=== PATIENT | male | born 1960 | race Hispanic/Latino ===

== ENCOUNTER 2018-01-24 17:42 | Inpatient (IN) | payer MEDICARE ==
[~2018-01-24] VITALS: Ht 177.8 cm; Wt 98.6 kg
[~2018-01-24 17:42] MED LIST: ADLT ASA LOW81 MG PO; ATORVASTATIN CA80 MG PO; CLONIDINE HCL0.1 MG PO; FENOFIBRATE145 MG PO; GABAPENTIN300 M2 PO; GLIMEPIRIDE2 MG PO; HYDRALAZINE50 MG PO; LISINOPRIL20 MG PO; NIFEDIPINE ER90 MG PO; NORMODYNE/100 MG/TA1 PO
[2018-01-24 18:10] LABS: HEMATOCRIT 30.7 % (39.0-50.0); HEMOGLOBIN 9.3 g/dl (14.0-18.0); IMMATURE GRANULOCYTES 0.3 % (0.0-5.0); MEAN CELL VOLUME 87.5 fL CALC (80.0-100.0); MEAN CORPUSCULAR HGB 26.5 pG CALC (26.0-32.0); MEAN CORPUSCULAR HGB CONC 30.3 g/L CALC (32.0-36.0); NEUT# 9.78 thou/uL (1.82-7.42); RED BLOOD COUNT 3.51 mill/uL (4.70-6.10); RED CELL DISTRI WIDTH 16.3 % (11.5-15.5)
[2018-01-24 18:28] LABS: ALBUMIN 3.5 g/dL (3.2-5.0); BILIRUBIN, TOTAL 0.4 mg/dL (0.0-1.4); TOTAL PROTEIN 7.1 g/dL (6.3-8.2)
[2018-01-24 18:33] LABS: CREATININE 2.6 mg/dL (0.7-1.3)
[2018-01-24 18:36] LABS: INFLUENZA A NONE DETECTED (NONE DETECT); INFLUENZA B NONE DETECTED (NONE DETECT)
[2018-01-24 19:58] LABS: URINE BILIRUBIN - DIPSTICK NEGATIVE (NEGATIVE); URINE BLOOD DIPSTICK TRACE-INTACT (NEGATIVE); URINE COLOR YELLOW; URINE GLUCOSE - DIPSTICK 100 mg/dL (NEGATIVE); URINE KETONE NEGATIVE (NEGATIVE); URINE LEUK ESTERASE NEGATIVE (NEGATIVE); URINE NITRITE - DIPSTICK NEGATIVE (Negative); URINE PROTEIN - DIPSTICK >=300 mg/dL (NEG-TRACE); URINE SPECIFIC GRAVITY 1.025; URINE UROBILINOGEN - DIPSTICK 0.2 E.U./dL (0.2)
[2018-01-24 19:59] LABS: URINE CLARITY CLEAR
[2018-01-24 20:05] LABS: URINE RBC 0-2 RBC/hpf (0-5); URINE WBC 0-2 WBC/hpf (0-5)
[2018-01-24 20:15] VITALS: BP 153/80
[2018-01-24 20:50] VITALS: BP 153/80
[2018-01-24 21:54] LABS: CREATININE 2.5 mg/dL (0.7-1.3)
[2018-01-24 21:56] LABS: POTASSIUM 5.5 mmol/l (3.5-5.1)
[2018-01-25] VITALS (7 sets, daily range): BP systolic 142–182; BP diastolic 72–88
[2018-01-25 06:05] LABS: HEMATOCRIT 27.6 % (39.0-50.0); HEMOGLOBIN 8.2 g/dl (14.0-18.0); IMMATURE GRANULOCYTES 0.3 % (0.0-5.0); MEAN CELL VOLUME 87.3 fL CALC (80.0-100.0); MEAN CORPUSCULAR HGB 25.9 pG CALC (26.0-32.0); MEAN CORPUSCULAR HGB CONC 29.7 g/L CALC (32.0-36.0); NEUT# 7.48 thou/uL (1.82-7.42); RED BLOOD COUNT 3.16 mill/uL (4.70-6.10); RED CELL DISTRI WIDTH 16.1 % (11.5-15.5)
[2018-01-25 06:18] LABS: CREATININE 2.3 mg/dL (0.7-1.3); POTASSIUM 4.8 mmol/l (3.5-5.1)
[2018-01-26 00:20] VITALS: BP 147/77
[2018-01-26 05:14] VITALS: BP 157/83
[2018-01-26 08:54] VITALS: BP 156/65
[2018-01-26 12:35] VITALS: BP 135/70
[2018-01-26 15:08] VITALS: BP 152/75
[2018-01-26 19:49] VITALS: BP 136/69
[2018-01-27] VITALS (7 sets, daily range): BP systolic 137–163; BP diastolic 74–85
[2018-01-27 05:36] LABS: HEMOGLOBIN 8.2 g/dl (14.0-18.0); IMMATURE GRANULOCYTES 2.5 % (0.0-5.0); MEAN CELL VOLUME 87.1 fL CALC (80.0-100.0); MEAN CORPUSCULAR HGB 26.5 pG CALC (26.0-32.0); MEAN CORPUSCULAR HGB CONC 30.4 g/L CALC (32.0-36.0); NEUT# 6.66 thou/uL (1.82-7.42); RED BLOOD COUNT 3.1 mill/uL (4.70-6.10); RED CELL DISTRI WIDTH 15.9 % (11.5-15.5)
[2018-01-27 05:58] LABS: BILIRUBIN, TOTAL 0.1 mg/dL (0.0-1.4); CREATININE 2.4 mg/dL (0.7-1.3); MAGNESIUM 2.3 mg/dL (1.6-2.3)
[2018-01-27 05:59] LABS: ALBUMIN 2.5 g/dL (3.2-5.0); POTASSIUM 5.3 mmol/l (3.5-5.1); TOTAL PROTEIN 5.3 g/dL (6.3-8.2)
[2018-01-28] VITALS (7 sets, daily range): BP systolic 141–169; BP diastolic 70–86
[2018-01-28 05:15] LABS: HEMATOCRIT 31.2 % (39.0-50.0); HEMOGLOBIN 9.4 g/dl (14.0-18.0); IMMATURE GRANULOCYTES 3.3 % (0.0-5.0); MEAN CELL VOLUME 86.4 fL CALC (80.0-100.0); MEAN CORPUSCULAR HGB CONC 30.1 g/L CALC (32.0-36.0); NEUT# 9.99 thou/uL (1.82-7.42); RED BLOOD COUNT 3.61 mill/uL (4.70-6.10); RED CELL DISTRI WIDTH 15.9 % (11.5-15.5)
[2018-01-28 05:40] LABS: ALBUMIN 2.9 g/dL (3.2-5.0); BUN 42 mg/dL (9-20); CARBON DIOXIDE 21 mmol/l (22-30); CHLORIDE 111 mmol/l (95-108); CREATININE 2.3 mg/dL (0.7-1.3); GFR 30 ML/MIN (>=60 (CALC)); GFR FOR AFR.AMER. 36 ML/MIN (>=60 (CALC)); MAGNESIUM 2.4 mg/dL (1.6-2.3); SODIUM 141 mmol/l (137-146)
[2018-01-28 06:18] LABS: POTASSIUM 5.9 mmol/l (3.5-5.1)
[2018-01-29 04:41] VITALS: BP 162/82
[2018-01-29 05:30] LABS: HEMATOCRIT 28.1 % (39.0-50.0); HEMOGLOBIN 8.5 g/dl (14.0-18.0); IMMATURE GRANULOCYTES 2.7 % (0.0-5.0); MEAN CELL VOLUME 85.9 fL CALC (80.0-100.0); MEAN CORPUSCULAR HGB CONC 30.2 g/L CALC (32.0-36.0); NEUT# 8.13 thou/uL (1.82-7.42); RED BLOOD COUNT 3.27 mill/uL (4.70-6.10); RED CELL DISTRI WIDTH 15.6 % (11.5-15.5)
[2018-01-29 06:06] LABS: ALBUMIN 2.5 g/dL (3.2-5.0); BILIRUBIN, TOTAL 0.2 mg/dL (0.0-1.4); CREATININE 2.2 mg/dL (0.7-1.3); MAGNESIUM 2.1 mg/dL (1.6-2.3); TOTAL PROTEIN 5.2 g/dL (6.3-8.2)
[2018-01-29 06:09] LABS: POTASSIUM 5.3 mmol/l (3.5-5.1)
[2018-01-29 08:13] VITALS: BP 172/85
[2018-01-29 11:29] VITALS: BP 168/85
[2018-01-29] MEDS ORDERED: DOXYCYCL HYC100 MG PO (14:05)
[2018-01-29 15:35] VITALS: BP 179/88
== END 2018-01-29 14:58 | disposition home or self-care (01) | DRG 194 ==
LOC: ED 17:42 → ED-I 19:00 → ED 19:23 → MS2 19:24
PROVIDERS: Family Medicine; Internal Medicine Nephrology; Nurse Practitioner Family; ADMIT Internal Medicine; ATTEND Internal Medicine Nephrology
DX: J18.9 Pneumonia, unspecified organism (principal); N17.9 Acute kidney failure, unspecified; N18.4 Chronic kidney disease, stage 4 (severe); I12.9 Hypertensive chronic kidney disease with stage 1 through stage 4 chronic kidney disease, or unspecified chronic kidney disease; E11.22 Type 2 diabetes mellitus with diabetic chronic kidney disease; E86.0 Dehydration; E87.5 Hyperkalemia; D63.1 Anemia in chronic kidney disease; E11.42 Type 2 diabetes mellitus with diabetic polyneuropathy; E11.319 Type 2 diabetes mellitus with unspecified diabetic retinopathy without macular edema; H54.8 Legal blindness, as defined in USA; I25.10 Atherosclerotic heart disease of native coronary artery without angina pectoris; M89.8X9 Other specified disorders of bone, unspecified site; M19.90 Unspecified osteoarthritis, unspecified site; Z79.84 Long term (current) use of oral hypoglycemic drugs; Z93.3 Colostomy status
CPT/HCPCS: G0378; J0885; J1756

== ENCOUNTER 2018-12-03 17:03 | Emergency (ER) | payer MEDICARE ==
[~2018-12-03] VITALS: Ht 177.8 cm; Wt 106.4 kg
[~2018-12-03 17:03] MED LIST changes: +DOXYCYCL HYC100 MG PO
[2018-12-03] MEDS ORDERED: TRAMADOL HYDROC50 M1 PO (18:10)
[2018-12-03] MEDS ORDERED: PENICILLN VK500 MG PO (18:10)
[2018-12-03 18:15] VITALS: BP 189/94
[2018-12-03] MEDS ORDERED: GLIMEPIRIDE2 MG PO (18:22)
[2018-12-03] MEDS ORDERED: ZOFRAN4 MG/TAB PO (18:22)
[2018-12-03] MEDS ORDERED: LISINOPRIL20 M1 PO (18:23)
[2018-12-03] MEDS ORDERED: NORMODYNE/100 MG/TA1 PO (18:23)
[2018-12-03] MEDS ORDERED: GABAPENTIN300 M2 PO (18:24)
[2018-12-03] MEDS ORDERED: CLONIDINE HCL0.1 MG PO (18:24)
== END 2018-12-03 18:15 | disposition home or self-care (01) ==
LOC: ED 17:03
DX: K04.7 Periapical abscess without sinus (principal); K02.9 Dental caries, unspecified; M84.68XA Pathological fracture in other disease, other site, initial encounter for fracture; I10 Essential (primary) hypertension; E11.9 Type 2 diabetes mellitus without complications; H54.7 Unspecified visual loss

== ENCOUNTER 2019-02-15 16:42 | Emergency (ER) | payer MEDICARE ==
[~2019-02-15] VITALS: Ht 177.8 cm; Wt 113.6 kg
[~2019-02-15 16:42] MED LIST changes: +LISINOPRIL20 M1 PO; +PENICILLN VK500 MG PO; +TRAMADOL HYDROC50 M1 PO; +ZOFRAN4 MG/TAB PO
[2019-02-15 17:44] LABS: HEMATOCRIT 26.1 % (39.0-50.0); HEMOGLOBIN 7.9 g/dl (14.0-18.0); IMMATURE GRANULOCYTES 0.9 % (0.0-5.0); MEAN CORPUSCULAR HGB 29.3 pG CALC (26.0-32.0); MEAN CORPUSCULAR HGB CONC 30.3 g/L CALC (32.0-36.0); NEUT# 11.13 thou/uL (1.82-7.42); RED BLOOD COUNT 2.7 mill/uL (4.70-6.10); RED CELL DISTRI WIDTH 13.7 % (11.5-15.5)
[2019-02-15 17:45] LABS: MEAN CELL VOLUME 96.7 fL CALC (80.0-100.0)
[2019-02-15 17:51] LABS: ALBUMIN 2.4 g/dL (3.2-5.0); POTASSIUM 4.6 mmol/l (3.5-5.1); TOTAL PROTEIN 5.2 g/dL (6.3-8.2)
[2019-02-15 18:20] LABS: BILIRUBIN, TOTAL 0.3 mg/dL (0.0-1.4); CREATININE 4.3 mg/dL (0.7-1.3)
[2019-02-15 19:10] VITALS: BP 202/99
== END 2019-02-15 19:10 | disposition short-term general hospital (02) ==
LOC: ED 16:42
PROVIDERS: Family Medicine
DX: I21.4 Non-ST elevation (NSTEMI) myocardial infarction (principal); J18.9 Pneumonia, unspecified organism; E11.22 Type 2 diabetes mellitus with diabetic chronic kidney disease; I12.9 Hypertensive chronic kidney disease with stage 1 through stage 4 chronic kidney disease, or unspecified chronic kidney disease; N18.4 Chronic kidney disease, stage 4 (severe); Z79.84 Long term (current) use of oral hypoglycemic drugs; Z93.3 Colostomy status
CPT/HCPCS: G9019

== ENCOUNTER 2019-05-13 | Emergency (ER) | payer MEDICARE ==
[2019-05-13] MEDS ORDERED: FERRAPLUS 90 PO (21:07)
[2019-05-13] MEDS ORDERED: FOLIC ACID1 MG PO (21:08)
[2019-05-13] MEDS ORDERED: AMOXICILLIN500 M2 PO (21:29)
[2019-05-13] MEDS ORDERED: LORTAB 5/3255 MG PO (21:30)
[2019-05-13] MEDS ORDERED: ZOFRAN4 MG PO (21:30)
== END 2019-05-13 21:40 | disposition home or self-care (01) ==
DX: K02.9 Dental caries, unspecified (principal); E11.9 Type 2 diabetes mellitus without complications; I10 Essential (primary) hypertension

== ENCOUNTER 2019-06-11 | Emergency (ER) | payer MEDICARE ==
[~2019-06-11] MED LIST changes: +AMOXICILLIN500 M2 PO; +FERRAPLUS 90 PO; +FOLIC ACID1 MG PO; +LORTAB 5/3255 MG PO; +ZOFRAN4 MG PO
[2019-06-11 18:13] LABS: HEMATOCRIT 27.8 % (39.0-50.0); HEMOGLOBIN 8.7 g/dl (14.0-18.0); IMMATURE GRANULOCYTES 0.7 % (0.0-5.0); MEAN CELL VOLUME 93.6 fL CALC (80.0-100.0); MEAN CORPUSCULAR HGB 29.3 pG CALC (26.0-32.0); MEAN CORPUSCULAR HGB CONC 31.3 g/dL CAL (32.0-36.0); NEUT# 6.15 thou/uL (1.82-7.42); RED BLOOD COUNT 2.97 mill/uL (4.70-6.10); RED CELL DISTRI WIDTH 16.5 % (11.5-15.5)
[2019-06-11 18:27] LABS: ALBUMIN 3.5 g/dL (3.2-5.0); BILIRUBIN, TOTAL 0.5 mg/dL (0.0-1.4); POTASSIUM 5.5 mmol/l (3.5-5.1); TOTAL PROTEIN 6.7 g/dL (6.3-8.2)
--- NOTE | 2019-06-11 19:18 | NUR ---
PT RECD VIA POV C/O INCREASING SOB AND INCREASED WOB INTUBATED ON 1ST ATTEMT VIA DIRECT VISUALIZTION W/ 8.0 ET TUBE SECURED AT [facility]CC [employer] CONFIMED PLACEMENT VIA AUSCULATION CO2 DETECTOR AND CHEST NORMAN PLACED ON VENT SETTINGS ON FLOW SHEET ALARMS ON AND AUDIBLE REPORT GIVEN TO CREDIT CONTROL CLERK THERAPIST ABG'S PENDING
[2019-06-11] MEDS ORDERED: LABETALOL200 MG PO (19:31)
[2019-06-11 19:32] LABS: URINE BILIRUBIN - DIPSTICK NEGATIVE (NEGATIVE); URINE BLOOD DIPSTICK TRACE-INTACT (NEGATIVE); URINE COLOR YELLOW; URINE GLUCOSE - DIPSTICK 100 mg/dL (NEGATIVE); URINE KETONE NEGATIVE (NEGATIVE); URINE LEUK ESTERASE NEGATIVE (NEGATIVE); URINE PROTEIN - DIPSTICK >=300 mg/dL (NEG-TRACE); URINE SPECIFIC GRAVITY 1.025; URINE UROBILINOGEN - DIPSTICK 0.2 E.U./dL (0.2)
[2019-06-11] MEDS ORDERED: ATORVASTATIN CA80 MG PO (19:33)
[2019-06-11 19:36] LABS: URINE NITRITE - DIPSTICK POSITIVE (Negative)
[2019-06-11] MEDS ORDERED: SODIUM PO (19:36)
[2019-06-11] MEDS ORDERED: HYDRALAZINE50 MG PO (19:37)
[2019-06-11 19:39] LABS: URINE AMORPH SEDIMENT MODERATE hpf (NONE-FER); URINE BACTERIA RARE hpf; URINE RBC 0-2 RBC/hpf (0-5); URINE WBC 0-2 WBC/hpf (0-5)
[2019-06-11] MEDS ORDERED: FERROUS SULFAT324 MG PO (19:39)
[2019-06-11] MEDS ORDERED: TRAZODONE50 MG PO (19:40)
--- NOTE | 2019-06-18 12:32 | NUR ---
Covid results (Negative) faxed to [facility] [phone].
== END 2019-06-11 21:45 | disposition still patient (30) ==
PROVIDERS: Family Medicine
PROC: 0BH17EZ Insertion of Endotracheal Airway into Trachea, Via Natural or Artificial Opening (ICD-10-PCS; principal; 2019-06-11)
PROC: 5A1935Z Respiratory Ventilation, Less than 24 Consecutive Hours (ICD-10-PCS; 2019-06-11)
PROC: 05HM33Z Insertion of Infusion Device into Right Internal Jugular Vein, Percutaneous Approach (ICD-10-PCS; 2019-06-11)
PROC: 0T9B70Z Drainage of Bladder with Drainage Device, Via Natural or Artificial Opening (ICD-10-PCS; 2019-06-11)
DX: J18.9 Pneumonia, unspecified organism (principal); R06.03 Acute respiratory distress; I13.0 Hypertensive heart and chronic kidney disease with heart failure and stage 1 through stage 4 chronic kidney disease, or unspecified chronic kidney disease; I50.9 Heart failure, unspecified; N17.9 Acute kidney failure, unspecified; E87.5 Hyperkalemia; E11.22 Type 2 diabetes mellitus with diabetic chronic kidney disease; N18.9 Chronic kidney disease, unspecified; Z20.828 Contact with and (suspected) exposure to other viral communicable diseases
CPT/HCPCS: J0692

== ENCOUNTER 2019-12-14 16:39 | Emergency (ER) | payer MEDICARE ==
[~2019-12-14] VITALS: Ht 177.8 cm; Wt 90.0 kg
[~2019-12-14 16:39] MED LIST changes: +FERROUS SULFAT324 MG PO; +LABETALOL200 MG PO; +SODIUM PO; +TRAZODONE50 MG PO
[2019-12-14] MEDS ORDERED: HYDROCO/APAP1 TA9 PO (18:14)
[2019-12-14 18:55] VITALS: BP 147/67
== END 2019-12-14 18:55 | disposition home or self-care (01) ==
LOC: ED 16:39
DX: S83.92XA Sprain of unspecified site of left knee, initial encounter (principal); M25.462 Effusion, left knee; E11.9 Type 2 diabetes mellitus without complications; I10 Essential (primary) hypertension; X50.0XXA Overexertion from strenuous movement or load, initial encounter; Y92.009 Unspecified place in unspecified non-institutional (private) residence as the place of occurrence of the external cause
CPT/HCPCS: L1830

== ENCOUNTER 2020-02-15 11:24 | Emergency (ER) | payer MEDICARE ==
[~2020-02-15] VITALS: Ht 177.8 cm; Wt 75.0 kg
[~2020-02-15 11:24] MED LIST changes: -FOLIC ACID1 MG PO; +HYDROCO/APAP1 TA9 PO
[2020-02-15] MEDS ORDERED: GABAPENTIN300 M2 PO (11:37)
[2020-02-15] MEDS ORDERED: ATORVASTATIN CA80 MG PO (11:37)
[2020-02-15] MEDS ORDERED: MIDODRINE HYDRO10 MG (11:39)
[2020-02-15] MEDS ORDERED: FOLIC ACID1 MG PO (11:40)
[2020-02-15] MEDS ORDERED: CEPHALEXIN500 MG PO (13:18)
[2020-02-15 13:44] VITALS: BP 183/79
== END 2020-02-15 14:40 | disposition home or self-care (01) ==
LOC: ED 11:24
DX: T82.848A Pain due to vascular prosthetic devices, implants and grafts, initial encounter (principal); T82.898A Other specified complication of vascular prosthetic devices, implants and grafts, initial encounter; E11.22 Type 2 diabetes mellitus with diabetic chronic kidney disease; I12.0 Hypertensive chronic kidney disease with stage 5 chronic kidney disease or end stage renal disease; N18.6 End stage renal disease; Z99.2 Dependence on renal dialysis; Y83.2 Surgical operation with anastomosis, bypass or graft as the cause of abnormal reaction of the patient, or of later complication, without mention of misadventure at the time of the procedure; Z93.3 Colostomy status

== ENCOUNTER 2020-03-19 22:40 | Emergency (ER) | payer MEDICARE ==
[~2020-03-19] VITALS: Ht 177.8 cm; Wt 97.7 kg
[~2020-03-19 22:40] MED LIST changes: +CEPHALEXIN500 MG PO; +CLONIDINE0.1 MG PO; +FOLIC ACID1 M1 PO; +FOLIC ACID1 MG PO; +LOSARTAN POTASS50 MG PO; +MIDODRINE HYDRO10 MG; +NIFEDIPINE ER90 M1 PO; +RENVELA800 MG PO; +TRAZODONE100 MG PO
[2020-03-19 23:26] LABS: HEMATOCRIT 31.1 % (39.0-50.0); HEMOGLOBIN 10.4 g/dl (14.0-18.0); IMMATURE GRANULOCYTES 0.3 % (0.0-5.0); MEAN CELL VOLUME 102.6 fL CALC (80.0-100.0); MEAN CORPUSCULAR HGB 34.3 pG CALC (26.0-32.0); MEAN CORPUSCULAR HGB CONC 33.4 g/dL CAL (32.0-36.0); NEUT# 3.8 thou/uL (1.82-7.42); RED BLOOD COUNT 3.03 mill/uL (4.70-6.10); RED CELL DISTRI WIDTH 13.3 % (11.5-15.5)
[2020-03-19 23:45] LABS: ALBUMIN 4.1 g/dL (3.2-5.0); BILIRUBIN, TOTAL 0.4 mg/dL (0.0-1.4); CREATININE 3.3 mg/dL (0.7-1.3); POTASSIUM 4.2 mmol/l (3.5-5.1); TOTAL PROTEIN 6.7 g/dL (6.3-8.2)
[2020-03-20 02:10] VITALS: BP 162/77
== END 2020-03-20 02:10 | disposition short-term general hospital (02) ==
LOC: ED 22:40
PROVIDERS: Emergency Medicine
DX: I13.2 Hypertensive heart and chronic kidney disease with heart failure and with stage 5 chronic kidney disease, or end stage renal disease (principal); I50.9 Heart failure, unspecified; E11.22 Type 2 diabetes mellitus with diabetic chronic kidney disease; N18.6 End stage renal disease; Z99.2 Dependence on renal dialysis; I25.10 Atherosclerotic heart disease of native coronary artery without angina pectoris; I25.2 Old myocardial infarction; Z20.822 Contact with and (suspected) exposure to COVID-19

== ENCOUNTER 2020-03-28 11:31 | Emergency (ER) | payer MEDICARE ==
[~2020-03-28] VITALS: Ht 177.8 cm; Wt 99.0 kg
[2020-03-28] MEDS ORDERED: ATORVASTATIN CA80 MG PO (11:47)
[2020-03-28] MEDS ORDERED: VITAMIN D32000 UNI2 PO (11:48)
[2020-03-28] MEDS ORDERED: LOSARTAN POTASS50 MG PO (11:48)
[2020-03-28] MEDS ORDERED: MIDODRINE HYDRO10 MG PO (11:49)
[2020-03-28] MEDS ORDERED: CLONIDINE0.1 MG PO (11:51)
[2020-03-28] MEDS ORDERED: NIFEDIPINE60 MG PO (11:52)
[2020-03-28] MEDS ORDERED: GABAPENTIN300 M2 PO (11:53)
[2020-03-28] MEDS ORDERED: RENVELA800 MG PO (11:54)
[2020-03-28] MEDS ORDERED: LABETALOL200 MG PO (11:55)
[2020-03-28] MEDS ORDERED: TRAZODONE50 MG PO (11:55)
[2020-03-28] MEDS ORDERED: LASIX40 MG PO (11:55)
[2020-03-28 12:09] LABS: HEMATOCRIT 30.5 % (39.0-50.0); HEMOGLOBIN 10.2 g/dl (14.0-18.0); IMMATURE GRANULOCYTES 0.2 % (0.0-5.0); MEAN CORPUSCULAR HGB 34.5 pG CALC (26.0-32.0); MEAN CORPUSCULAR HGB CONC 33.4 g/dL CAL (32.0-36.0); NEUT# 3.37 thou/uL (1.82-7.42); RED BLOOD COUNT 2.96 mill/uL (4.70-6.10); RED CELL DISTRI WIDTH 12.9 % (11.5-15.5)
[2020-03-28 12:27] LABS: ACT PARTIAL THROMBO TIME 25.6 SECONDS (20.0-32.5); PROTHROMBIN TIME 9.9 SECONDS (9.0-12.5)
[2020-03-28 12:29] LABS: BILIRUBIN, TOTAL 0.4 mg/dL (0.0-1.4); MAGNESIUM 2.5 mg/dL (1.6-2.3)
[2020-03-28 12:35] LABS: CREATININE 5.1 mg/dL (0.7-1.3)
[2020-03-28 13:17] LABS: URINE BILIRUBIN - DIPSTICK NEGATIVE (NEGATIVE); URINE BLOOD DIPSTICK TRACE-LYSED (NEGATIVE); URINE COLOR YELLOW; URINE GLUCOSE - DIPSTICK 250 mg/dL (NEGATIVE); URINE KETONE NEGATIVE (NEGATIVE); URINE LEUK ESTERASE NEGATIVE (NEGATIVE); URINE NITRITE - DIPSTICK NEGATIVE (Negative); URINE PROTEIN - DIPSTICK 100 mg/dL (NEG-TRACE); URINE UROBILINOGEN - DIPSTICK 0.2 E.U./dL (0.2)
[2020-03-28 13:22] LABS: URINE RBC 0-2 RBC/hpf (0-5); URINE WBC 0-2 WBC/hpf (0-5)
[2020-03-28 13:53] VITALS: BP 165/79
== END 2020-03-28 13:48 | disposition home or self-care (01) ==
LOC: ED 11:31
DX: I13.2 Hypertensive heart and chronic kidney disease with heart failure and with stage 5 chronic kidney disease, or end stage renal disease (principal); E11.22 Type 2 diabetes mellitus with diabetic chronic kidney disease; N18.6 End stage renal disease; I50.9 Heart failure, unspecified; Z99.2 Dependence on renal dialysis; I25.2 Old myocardial infarction; H54.8 Legal blindness, as defined in USA; Z20.822 Contact with and (suspected) exposure to COVID-19

== ENCOUNTER 2020-05-19 16:25 | Emergency (ER) | payer MEDICARE ==
[~2020-05-19] VITALS: Ht 177.8 cm; Wt 90.0 kg
[~2020-05-19 16:25] MED LIST changes: +LASIX40 MG PO; +MIDODRINE HYDRO10 MG PO; +NIFEDIPINE60 MG PO; +VITAMIN D32000 UNI2 PO
[2020-05-19 18:25] LABS: HEMATOCRIT 31.3 % (39.0-50.0); IMMATURE GRANULOCYTES 0.7 % (0.0-5.0); MEAN CELL VOLUME 105.4 fL CALC (80.0-100.0); MEAN CORPUSCULAR HGB 33.7 pG CALC (26.0-32.0); MEAN CORPUSCULAR HGB CONC 31.9 g/dL CAL (32.0-36.0); NEUT# 4.05 thou/uL (1.82-7.42); RED BLOOD COUNT 2.97 mill/uL (4.70-6.10); RED CELL DISTRI WIDTH 12.7 % (11.5-15.5)
[2020-05-19 18:41] LABS: ALBUMIN 4.3 g/dL (3.2-5.0); BILIRUBIN, TOTAL 0.5 mg/dL (0.0-1.4)
[2020-05-19 18:42] LABS: CREATININE 3.1 mg/dL (0.7-1.3)
[2020-05-19 21:11] LABS: URINE BILIRUBIN - DIPSTICK NEGATIVE (NEGATIVE); URINE BLOOD DIPSTICK TRACE-INTACT (NEGATIVE); URINE COLOR YELLOW; URINE GLUCOSE - DIPSTICK 250 mg/dL (NEGATIVE); URINE KETONE NEGATIVE (NEGATIVE); URINE LEUK ESTERASE NEGATIVE (NEGATIVE); URINE PROTEIN - DIPSTICK 100 mg/dL (NEG-TRACE); URINE SPECIFIC GRAVITY 1.015; URINE UROBILINOGEN - DIPSTICK 0.2 E.U./dL (0.2)
[2020-05-19 21:13] LABS: URINE NITRITE - DIPSTICK NEGATIVE (Negative)
[2020-05-19 21:14] LABS: URINE RBC 0-2 RBC/hpf (0-5); URINE WBC 0-2 WBC/hpf (0-5)
[2020-05-20 02:43] VITALS: BP 140/70
== END 2020-05-20 02:43 | disposition home or self-care (01) ==
LOC: ED 16:25
DX: E11.65 Type 2 diabetes mellitus with hyperglycemia (principal); R53.1 Weakness; I12.0 Hypertensive chronic kidney disease with stage 5 chronic kidney disease or end stage renal disease; E11.22 Type 2 diabetes mellitus with diabetic chronic kidney disease; N18.6 End stage renal disease; H54.8 Legal blindness, as defined in USA; I25.2 Old myocardial infarction; Z99.2 Dependence on renal dialysis; Z93.3 Colostomy status

== ENCOUNTER 2020-05-30 | Observation (INO) | payer MEDICARE ==
--- NOTE | 2020-05-30 15:22 | NUR ---
PT TO ROOM 9 PER EMS, ALERT/ORIENTED X3, NO CHEST PAIN OR SOB UPON ARRIVAL. DENIES ANY PAIN AT THIS TIME.
[2020-05-30 16:02] LABS: HEMATOCRIT 33.9 % (39.0-50.0); HEMOGLOBIN 11.1 g/dl (14.0-18.0); IMMATURE GRANULOCYTES 0.4 % (0.0-5.0); MEAN CELL VOLUME 100.9 fL CALC (80.0-100.0); MEAN CORPUSCULAR HGB CONC 32.7 g/dL CAL (32.0-36.0); NEUT# 5.03 thou/uL (1.82-7.42); RED BLOOD COUNT 3.36 mill/uL (4.70-6.10); RED CELL DISTRI WIDTH 12.3 % (11.5-15.5)
--- NOTE | 2020-05-30 16:13 | NUR ---
Reassessment of patient completed. No distress noted.
[2020-05-30 16:15] LABS: ALBUMIN 4.8 g/dL (3.2-5.0); BILIRUBIN, TOTAL 0.7 mg/dL (0.0-1.4); CREATININE 3.6 mg/dL (0.7-1.3); POTASSIUM 3.9 mmol/l (3.5-5.1); TOTAL PROTEIN 8.1 g/dL (6.3-8.2)
--- NOTE | 2020-05-30 18:00 | NUR ---
REPORT CALLED AND PT TAKEN UP TO FLOOR.
[2020-05-30 18:15] VITALS: BP 171/88
--- NOTE | 2020-05-30 18:19 | NUR ---
PT ARRIVED FROM THE ER ON A STREACHER. NOTED PT IS LEGALLY BLIND. WITH ASSISST OF TWO, PT AMB TO THE BATHROOM. PT HAD A MED SIZE LIGHT BROWN STOOL AND VOIDED YELLOW CLEAR URINE. INTO BED, ORTIENTED TO THE CALL SYSTEM THE BED AND THE TV.AND THE TELEPHONE. VS B/P 171/88 PL 71 1005 ON 2L O2 TEMP 97.9. PATIENT DENIES PAIN AT THIS TIME. REPOSITIONED FOR COMFORT, SIDE RAILS UP CALL LIGHT IN REACH BED LOCKED IN LOW POSITION. ALL SAFTY MEASURES IN PLACE. SET PT UP TO EAT HIS EVENING MEAL. SIDE RAILS UP CALL LIGHT IN REACH BED LOCKED IN LOW POSITION, ALL SAFTY MEASURES IN PLACE WILL CONTINUE TO MONIOTR THE PATIENT.
[2020-05-30 19:50] VITALS: BP 151/80
--- NOTE | 2020-05-30 20:00 | NUR ---
PHYSICAL ASSESMENT COMPLETE. PT CURRENTLY DENIES PAIN OR DISCOMFORT. SCHEDULED MEDICATIONS AND PRN MEDICATION ADMINISTERED, SEE E-MAR. PT DENIES ANY NEEDS AT THIS TIME. PLAN OF CARE REVIEWED, PT DENIES QUESTIONS, VERBALIZES UNDERSTANDING. ITEMS WITHIN REACH, BED LOCKED IN LOW POSITION W/ BEDRAILS UP X2. CALL CANTU WITHIN REACH, AGREES TO CALL PRN.
[2020-05-30 23:50] VITALS: BP 128/75
--- NOTE | 2020-05-31 | NUR ---
PT LAYING IN BED WITH EYES CLOSED, APPEARS TO BE SLEEPING, APPEARS COMFORTABLE AND IN NO DISTRESS. RESPIRATIONS REGULAR AND UNLABORED. ITEMS REMAIN WITHIN REACH, CALL CANTU REMAINS WITHIN REACH. BED REMAINS LOCKED AND IN LOW POSITION WITH BEDRAILS UP X2. WILL CONTINUE TO MONITOR.
[2020-05-31 04:00] VITALS: BP 123/71
--- NOTE | 2020-05-31 04:00 | NUR ---
PT RESTING IN BED, NO SIGNS OF DISTRESS NOTED, RESP EVEN AND UNLABORED. PT VOICES NO NEEDS OR COMPLAINTS AT THIS TIME. CALL LIGHT IN REACH, CONTINUE TO MONITOR.
[2020-05-31 06:04] LABS: HEMATOCRIT 32.2 % (39.0-50.0); HEMOGLOBIN 10.5 g/dl (14.0-18.0); IMMATURE GRANULOCYTES 0.3 % (0.0-5.0); MEAN CELL VOLUME 101.6 fL CALC (80.0-100.0); MEAN CORPUSCULAR HGB 33.1 pG CALC (26.0-32.0); MEAN CORPUSCULAR HGB CONC 32.6 g/dL CAL (32.0-36.0); NEUT# 4.56 thou/uL (1.82-7.42); RED BLOOD COUNT 3.17 mill/uL (4.70-6.10); RED CELL DISTRI WIDTH 12.3 % (11.5-15.5)
[2020-05-31 06:34] LABS: CREATININE 5.4 mg/dL (0.7-1.3); POTASSIUM 4.7 mmol/l (3.5-5.1)
[2020-05-31 07:47] VITALS: BP 111/53
--- NOTE | 2020-05-31 07:53 | NUR ---
SHIFT CHANGE REPORT, PT AWAKE ALERT AND ORIENTED SITTING UP IN BED, DENIES PAIN AT THIS TIME, TELE MONITOR IN PLACE, CALL CANTU IN REACH AND BED LOCKED IN LOWEST POSITION.
[2020-05-31 09:42] VITALS: BP 132/73
[2020-05-31 11:13] VITALS: BP 143/74
[2020-05-31] MEDS ORDERED: ASPIRIN 81 LOW81 MG PO ×2 (11:43→11:44)
--- NOTE | 2020-05-31 14:06 | NUR ---
RESTING IN BED IN SUPINE POSITION WAITING FOR SPOUSE TO RECEIVE HIM.
--- NOTE | 2020-05-31 15:32 | NUR ---
Discharge instructions given. Patient verbalizes understanding of same. Discharged in stable condition via Wheelchair to Home with spouse. All belongings sent with pt.
== END 2020-05-31 15:30 | disposition home or self-care (01) ==
PROVIDERS: Emergency Medicine; ADMIT Internal Medicine
DX: R07.9 Chest pain, unspecified (principal); E11.65 Type 2 diabetes mellitus with hyperglycemia; I12.0 Hypertensive chronic kidney disease with stage 5 chronic kidney disease or end stage renal disease; E11.22 Type 2 diabetes mellitus with diabetic chronic kidney disease; N18.6 End stage renal disease; I25.10 Atherosclerotic heart disease of native coronary artery without angina pectoris; E11.40 Type 2 diabetes mellitus with diabetic neuropathy, unspecified; E78.5 Hyperlipidemia, unspecified; I25.2 Old myocardial infarction; H54.8 Legal blindness, as defined in USA; Z93.3 Colostomy status; Z99.2 Dependence on renal dialysis; Z86.14 Personal history of Methicillin resistant Staphylococcus aureus infection; Z20.822 Contact with and (suspected) exposure to COVID-19
CPT/HCPCS: G0378

== ENCOUNTER 2020-11-09 15:16 | Emergency (ER) | payer MEDICARE ==
[~2020-11-09] VITALS: Ht 177.8 cm; Wt 100.0 kg
[~2020-11-09 15:16] MED LIST changes: +ASPIRIN 81 LOW81 MG PO
[2020-11-09] MEDS ORDERED: TRAZODONE50 MG PO (16:12)
[2020-11-09] MEDS ORDERED: ATORVASTATIN CA80 MG PO (16:12)
[2020-11-09] MEDS ORDERED: FOLIC ACID1 MG PO (16:12)
[2020-11-09] MEDS ORDERED: DIAZEPAM5 MG PO (16:13)
[2020-11-09] MEDS ORDERED: HYDROXYZ HCL25 MG PO (16:14)
[2020-11-09] MEDS ORDERED: GABAPENTIN100 MG PO (16:14)
[2020-11-09] MEDS ORDERED: MIDODRINE HYDRO10 MG PO (16:14)
[2020-11-09] MEDS ORDERED: NIFEDIPINE60 MG PO (16:14)
[2020-11-09 16:15] VITALS: BP 155/85
[2020-11-09] MEDS ORDERED: APRESOLINE10 MG PO (16:15)
[2020-11-09] MEDS ORDERED: FUROSEMIDE20 MG PO (16:15)
[2020-11-09] MEDS ORDERED: LABETALOL HYDR200 MG PO (16:15)
[2020-11-09] MEDS ORDERED: RENVELA800 MG PO ×2 (16:20)
== END 2020-11-09 16:15 | disposition home or self-care (01) ==
LOC: ED 15:16
DX: U07.1 COVID-19 (principal); I12.0 Hypertensive chronic kidney disease with stage 5 chronic kidney disease or end stage renal disease; E11.22 Type 2 diabetes mellitus with diabetic chronic kidney disease; N18.6 End stage renal disease; H54.8 Legal blindness, as defined in USA; I25.2 Old myocardial infarction; Z99.2 Dependence on renal dialysis; Z93.3 Colostomy status